=== PATIENT | male | born 1940 ===

== ENCOUNTER 2024-11-05 10:31 | Outpatient (CLI) | payer OTHER | END 2024-11-05 10:34 | disposition home or self-care (01) | LOC: MRI 10:31 | PROVIDERS: ATTEND Neuromusculoskeletal Medicine & OMM | DX: I72.9 Aneurysm of unspecified site (principal); I65.1 Occlusion and stenosis of basilar artery; I65.09 Occlusion and stenosis of unspecified vertebral artery; I65.29 Occlusion and stenosis of unspecified carotid artery; Q28.2 Arteriovenous malformation of cerebral vessels | CPT/HCPCS: 70544; 70551 ==

== ENCOUNTER 2024-11-29 10:31 | Outpatient (CLI) | payer OTHER | END 2024-11-29 11:00 | disposition home or self-care (01) | LOC: TOM 10:31 | PROVIDERS: ATTEND Neuromusculoskeletal Medicine & OMM | DX: I65.22 Occlusion and stenosis of left carotid artery (principal) | CPT/HCPCS: 70498; Q9965 ==